=== PATIENT | male | born 1965 | race Caucasian/White ===

== ENCOUNTER 2016-12-26 15:35 | Emergency (ER) | payer BC, OTHER ==
[~2016-12-26] VITALS: Ht 180.3 cm; Wt 105.0 kg
[~2016-12-26 15:35] MED LIST: ATV1 PO; BUSP-8 PO; CINN1CAP2 PO; MISC1CAP58 PO; NTRS PO; VITA400C3 PO; [UNRECOGNIZED DRUG - OTHER] PO
[2016-12-26 15:41] VITALS: TEMP 36.6; Ht 180.3 cm; Wt 105.0 kg
[2016-12-26] MEDS ORDERED: HYDROmorphone INJ 1 MG/ML SYR IV STA (16:10)
[2016-12-26] MEDS ORDERED: LORA-741 PO (16:31)
[2016-12-26] MEDS ORDERED: OXYC1TAB3 PO (17:18)
[2016-12-26] MEDS ORDERED: CYCL10TA6 PO (17:18)
[2016-12-26] MEDS ORDERED: DIAZEPAM INJ 5 MG/ML 2 ML CARP IV STA (17:38)
[2016-12-26] MEDS ORDERED: HYDROmorphone INJ 0.5 MG/0.5 ML SYR IV STA (17:38)
[2016-12-26 18:34] VITALS: BP 124/82; PULSE 67; O2SAT 96
--- NOTE | 2016-12-26 21:24 | EMERGENCY ROOM VISIT NOTE ---
History First contact with patient: 15:57 Chief Complaint: BACK PAIN Stated Complaint: BACK PAIN History of Present Illness The patient is a 51 year old male who presents to the Emergency Room with complaints of lower back pain. The patient reports that he has spent a significant amount of time driving in his vehicle this week. He traveled several trips to/between [facility] and [place]. The patient started to notice some lower back discomfort later in the week, and now has significant pain. He reports that when he lays on his back and does not move, his discomfort is a 4 out of 10. With movement, it quickly escalates to a 9 out of 10. The patient did take some naproxen 500 mg at home, which only reduced his pain slightly. The patient presents to the emergency department via [facility] for further evaluation and management. He did receive IV morphine and Zofran en route which only reduced his pain minimally. He denies any history of back injury or chronic back pain. He currently denies any pain radiating into his buttocks or hips. The pain is mostly left sided in the lower back region. He has not noticed any urinary symptoms. The pain is significantly worsened with movement. He denies any abdominal pain, nausea, vomiting or fever. Review of Systems 10 system review was performed and was negative except for pertinent positives and negatives as indicated in history of present illness Past Medical/Surgical History Medical Problems: (1) Anxiety Family History Cancer Heart disease Social History Smoking Status: Never Smoker Marital Status: Housing Status: lives with family Occupation Status: employed Current/Historical Medications Scheduled Cyclobenzaprine Hcl (Flexeril), 10 MG PO TID Scheduled PRN Lorazepam (Ativan), 0.5 MG PO TID PRN for Anxiety/Agitation Oxycodone Ir (Roxicodone Ir), 1-2 TAB PO Q4H PRN for Pain Allergies Coded Allergies: Dust (Unverified Allergy, Mild, 12/26/16) Gluten (Verified Allergy, Unknown, heartburn,constipation, 12/26/16) Physical Exam Vital Signs Date Time Temp Pulse Resp B/P (MAP) Pulse Ox O2 Delivery O2 Flow Rate FiO2 12/26/16 18:34 67 18 124/82 96 12/26/16 17:30 69 18 130/92 94 Room Air 12/26/16 15:41 36.6 66 18 132/94 96 Room Air Pain Rating (0-10): 2.0 Physical Exam CONSTITUTIONAL: Healthy and well nourished. Alert and oriented X 3 with positive affect. Patient does not appear in any acute distress. He is currently living in the supine position with his hips and knees flexed, and legs on several pillows and a blanket. When he does move on the bed, he appears in significant discomfort for short period of time before the pain resolves. HEENT: Normocephalic, atraumatic. Pupils equal, round and reactive. NECK: Full active range of motion without discomfort. RESPIRATORY: Clear to auscultation bilaterally with no wheezing, crackles, rhonchi or stridor. CARDIOVASCULAR: Regular rate and rhythm with no murmurs, rubs or gallops. GASTROINTESTINAL: Bowel sounds present in all quadrants. Soft and nontender to palpation. MUSCULOSKELETAL: Examination shows tenderness to palpation of the entire left lumbar paraspinous region. Negative leg roll. Mildly positive straight leg raise. INTEGUMENTARY: No rash or other significant dermatologic conditions noted. NEUROLOGIC: No focal neurologic deficits noted. Left foot and toes are sensory intact. Medical Decision & Procedures Medications Administered Medications (Trade) Dose Ordered Sig/Rebecca Route Start Time Stop Time Status Last Admin Dose Admin Hydromorphone HCl (Dilaudid Inj) 1 mg NOW STAT IV 12/26/16 16:10 12/26/16 16:11 DC 12/26/16 16:24 1 MG Hydromorphone HCl (Dilaudid Inj) 0.5 mg NOW STAT IV 12/26/16 17:38 12/26/16 17:39 DC 12/26/16 17:50 0.5 MG Diazepam (Valium Inj) 2.5 mg NOW STAT IV 12/26/16 17:38 12/26/16 17:39 DC 12/26/16 17:50 2.5 MG ED Course Patient history and physical exam were performed. Nurse's notes were reviewed. Vital signs were reviewed and grossly normal. As indicated in history of present illness, the patient received IV morphine and Zofran en route to the emergency department. This did not provide any significant relief of his pain. The patient was then administered Dilaudid 1 mg IVP, which reduced his pain to a 6 out of 10. Attempted trial ambulation unsuccessful as the patient could not stand up from a seated position because of pain. An additional Dilaudid 0.5 mg and Valium 2.5 mg IVP further reduced his pain to a 2 out of 10. He was able to ambulate prior to discharge. The patient was encouraged to intermittently apply heat to the back. Avoid sitting for long periods of time. Ibuprofen and Tylenol in alternating fashion for baseline pain relief. The patient was provided prescriptions for Flexeril and OxyIR 5 mg. No drinking alcohol or driving while taking these medications. The patient was encouraged to follow-up with his PCP next week if symptoms are not improving. He is welcome to return to the emergency department over the weekend as needed for any progressively worsening symptoms. The patient was happy with plan of care, and voiced understanding of all discharge instructions. Medical Decision Impression Primary Impression: Lumbar strain Departure Information Dispostion Home / Self-Care Condition GOOD Prescriptions Oxycodone Ir (Roxicodone Ir) 5 Mg Tab 1-2 TAB PO Q4H Y for Pain, #15 TAB For Initial Treatment Prov: Lucas Donahue PA 12/26/16 Cyclobenzaprine Hcl (FLEXERIL) 10 Mg Tab 10 MG PO TID for SPASM, #15 TAB Prov: Lucas Donahue PA 12/26/16 Forms HOME CARE DOCUMENTATION FORM, IMPORTANT VISIT INFORMATION Patient Instructions My [facility] Additional Instructions Intermittently apply heat to back. Ibuprofen 800 mg and/or Tylenol 1000 mg every 8 hours. You may also alternate these medications for more effective pain relief: Ibuprofen --4 HRS--> Tylenol --4 HRS--> ibuprofen --4 HRS--> Tylenol .... Take Flexeril as prescribed for muscle spasms. OxyIR if needed for worse pain. Do not drink alcohol or drive while taking these medications. Follow-up with your family doctor if symptoms are not improving within the next 3 days. Problem Qualifiers Primary Impression: Lumbar strain Encounter type: initial encounter Qualified Codes: S39.012A - Strain of muscle, fascia and tendon of lower back, initial encounter
== END 2016-12-26 18:35 | disposition home or self-care (01) ==
LOC: EDBD 15:35 → C.EDB 15:36
DX: S39.012A Strain of muscle, fascia and tendon of lower back, initial encounter (principal); X50.1XXA Overexertion from prolonged static or awkward postures, initial encounter; Y92.89 Other specified places as the place of occurrence of the external cause; F41.9 Anxiety disorder, unspecified; Z80.9 Family history of malignant neoplasm, unspecified; Z82.49 Family history of ischemic heart disease and other diseases of the circulatory system